=== PATIENT | male | born 1985 | race Caucasian/White ===

== ENCOUNTER 2024-02-27 05:07 | Outpatient (CLI) | payer OTHER, SELFPAY ==
--- NOTE | 2024-02-27 12:29 | W.NUTRFU ---
Date of service: 02/27/24 Time of Service: 12:00 Nutrition Note NOTE: Fredy preferred phone/virtual visit due to distance and schedule issues. We spoke on the phone this afternoon about his GI concerns. No significant medical history to report. 14 years ago discovered lactose sensitivity and avoids. Reports high stress levels during COVID and would have diarrhea daily but resolved. Feels intolerances have increased - definitely finds garlic, onion, broccoli to be triggers for diarrhea cur?rently. He has gotten probiotic supplement but hasn't taken it yet. Used to take a multivitamin but stopped thinking it might be contributing to his diarrhea. He does note stress is a trigger and trying to work on management. He is not proactive with his diet at all - doesn't prep food much, wants to keep things simple. Provider notes he tries mostly vegan diet however he provides chicken, chicken nuggets and tacos as examples of common convenient choices. I encouraged Fredy to be more proactive with planning his meals and food choices and working with simple traditional choices (whole fruit, no sugar peanut butter and other nuts and seeds, finger food veggies like carrot/cuke/celery/grape tomatoes etc...) and pairing items together that are easy and simple but nutrient dense. Encouraged to avoid fatty/fried/greasy foods, high amounts of added sugars, caffeine, spicy foods and foods identified to already be a trigger. Encouraged to keep food and sx diary to help more clearly identify patterns (is it food stress or both?) Reviewed low fiber/residue diet when having inflammation sx's/dairrhea and work fiber and more plant choices in his diet as it subsides. sent him an email with some resources for diarrhea mgt and general healthy eating resources. Fredy was told he can contact me with any specific needs or to make a follow up appt if he feels he needs one. Time Spent in Nutritional Counseling and Treatment: 30 min
== END 2024-02-27 05:08 | disposition home or self-care (01) ==
LOC: DS 05:07
PROVIDERS: PCP Family Medicine; Visit Provider Dietitian, Registered
DX: K58.9 Irritable bowel syndrome, unspecified (principal); Z71.3 Dietary counseling and surveillance
CPT/HCPCS: 00123; 97802